=== PATIENT | female | born 1955 | race Caucasian/White ===

== ENCOUNTER 2024-07-07 01:47 | Outpatient (RCR) | payer MEDICARE, BC, SELFPAY ==
[2024-06-25] MEDS: Normal Saline Flush 10 ML SYR IVP (13:46)
[2024-06-25 13:55] LABS: Abs Immature Grans 0.01 10^3/uL (0.0-0.06); Absolute Basophil Count 0.01 10^3/uL (0.0-0.2); Absolute Lymphocyte Count 0.61 10^3/uL (1.2-3.4); Absolute Monocyte Count 0.41 10^3/uL (0.1-0.8); Basophils % 0.4 %; HCT 32.6 % (36.0-46.0); HGB 10.6 g/dL (11.2-15.7); Immature Grans % 0.4 %; Lymphocytes % 21.5 %; MCH 32.3 pg (27.0-33.0); MCHC 32.5 % (32.0-36.0); MCV 99 fL (80-95); Monocytes % 14.4 %; Neutrophils % 63.3 %; Platelet Count 188 10^3/uL (130-400); RBC 3.28 10^6/uL (3.93-5.22); RDW 13.2 % (11.7-14.6); RDW-SD 47.8 fL; WBC 2.84 10^3/uL (4.4-10.8)
[2024-06-25 14:13] LABS: ALT 19 U/L (14-59); AST 24 U/L (15-37); Albumin 3.1 g/dL (3.4-5.0); Alkaline Phosphatase 136 U/L (46-116); Anion Gap 7.8 mmol/L (3-11); BUN 14 mg/dL (7-18); Bilirubin, Total 0.29 mg/dL (0.2-1.0); CO2 29.2 mmol/L (21.0-32.0); CREATININE 0.9 mg/dL (0.55-1.02); Calcium 8.8 mg/dL (8.5-10.1); Chloride 105 mmol/L (98-107); Estimated GFR 69.64 (mL/min/1.73m2); Glucose 121 mg/dL (74-106); LDH 169 U/L (81-234); Potassium 4.2 mmol/L (3.5-5.1); Sodium 142 mmol/L (136-145); Total Protein 7.4 g/dL (6.4-8.2)
[2024-07-02] MEDS: Normal Saline Flush 10 ML SYR IVP (12:14)
[2024-07-02 12:41] LABS: Abs Immature Grans 0.03 10^3/uL (0.0-0.06); HCT 31.8 % (36.0-46.0); HGB 10.4 g/dL (11.2-15.7); MCH 32.1 pg (27.0-33.0); MCHC 32.7 % (32.0-36.0); MCV 98 fL (80-95); MPV 10.6 fL (8.0-11.0); RBC 3.24 10^6/uL (3.93-5.22); RDW 12.9 % (11.7-14.6); RDW-SD 46.5 fL
[2024-07-02 12:59] LABS: ALT 16 U/L (14-59); AST 16 U/L (15-37); Alkaline Phosphatase 102 U/L (46-116); Anion Gap 7.1 mmol/L (3-11); BUN 18 mg/dL (7-18); Bilirubin, Total 0.46 mg/dL (0.2-1.0); CO2 28.9 mmol/L (21.0-32.0); CREATININE 0.8 mg/dL (0.55-1.02); Calcium 8.5 mg/dL (8.5-10.1); Chloride 106 mmol/L (98-107); Estimated GFR 80.21 (mL/min/1.73m2); Glucose 123 mg/dL (74-106); LDH 155 U/L (81-234); Potassium 3.5 mmol/L (3.5-5.1); Sodium 142 mmol/L (136-145); Total Protein 6.6 g/dL (6.4-8.2)
[2024-07-02 13:12] LABS: Absolute Lymphocyte Count 0.36 10^3/uL (1.2-3.4); Absolute Monocyte Count 0.02 10^3/uL (0.1-0.8); Atypical Lymphocytes % 6 %; Metamyelocytes % 4; Myelocytes % 2
[2024-07-02 13:15] LABS: Diff Comment Manual Differential; RBC Morphology Normal
[2024-07-02 13:17] LABS: WBC 0.46 10^3/uL (4.4-10.8)
[2024-07-02 13:18] LABS: Absolute Neutrophil Count 0.06 10^3/uL (1.2-6.7); Platelet Count 22 10^3/uL (130-400)
[2024-07-04] MEDS: Normal Saline Flush 10 ML SYR IVP (08:22)
[2024-07-04 08:40] LABS: Absolute Lymphocyte Count 0.28 10^3/uL (1.2-3.4); Absolute Monocyte Count 0.02 10^3/uL (0.1-0.8); HCT 30.1 % (36.0-46.0); HGB 9.9 g/dL (11.2-15.7); Lymphocytes % 87.5 %; MCH 32.1 pg (27.0-33.0); MCHC 32.9 % (32.0-36.0); MCV 98 fL (80-95); MPV 12.9 fL (8.0-11.0); Monocytes % 6.3 %; Neutrophils % 6.2 %; RBC 3.08 10^6/uL (3.93-5.22); RDW 12.8 % (11.7-14.6); RDW-SD 45.5 fL
[2024-07-04 08:54] LABS: Diff Comment Agrees w/ Instrument; RBC Morphology Normal
[2024-07-04 08:55] LABS: Absolute Neutrophil Count 0.02 10^3/uL (1.2-6.7); Platelet Count 7 10^3/uL (130-400); WBC 0.32 10^3/uL (4.4-10.8)
[2024-07-04 13:20] VITALS: BP 137/86; PULSE 63; RESP 17; TEMP 36.1; O2SAT 100
[2024-07-07] MEDS: Normal Saline Flush 10 ML SYR IVP (08:16)
[2024-07-07 08:30] LABS: Absolute Basophil Count 0.03 10^3/uL (0.0-0.2); HCT 27.4 % (36.0-46.0); HGB 9.1 g/dL (11.2-15.7); MCH 32.3 pg (27.0-33.0); MCHC 33.2 % (32.0-36.0); MCV 97 fL (80-95); RBC 2.82 10^6/uL (3.93-5.22); RDW 12.4 % (11.7-14.6); RDW-SD 44.3 fL
[2024-07-07 09:13] LABS: Absolute Eosinophil Count 0.02 10^3/uL (0.0-0.7); Absolute Lymphocyte Count 0.29 10^3/uL (1.2-3.4); Absolute Monocyte Count 0.06 10^3/uL (0.1-0.8); Absolute Neutrophil Count 0.52 10^3/uL (1.2-6.7); Atypical Lymphocytes % 1 %; Bands % 3 %; Metamyelocytes % 2
[2024-07-07 09:14] LABS: Diff Comment Manual Differential; RBC Morphology Normal
[2024-07-07 09:32] LABS: Platelet Count 13 10^3/uL (130-400); WBC 0.93 10^3/uL (4.4-10.8)
[2024-07-07 13:21] VITALS: BP 139/84; PULSE 59; RESP 17; TEMP 35.5; O2SAT 100
[2024-07-07 13:35] VITALS: BP 132/82; PULSE 68; RESP 17; TEMP 36.2; O2SAT 100
== END 2024-07-10 23:59 | disposition home or self-care (01) ==
LOC: INF 01:47
PROVIDERS: Visit Provider Internal Medicine Hematology & Oncology
DX: C83.38 Diffuse large B-cell lymphoma, lymph nodes of multiple sites (principal); Z45.2 Encounter for adjustment and management of vascular access device
CPT/HCPCS: 36430; 36591; 80053; 86850; 86900; 86901; P9073; 83615; 85025; P9035

== ENCOUNTER 2024-08-06 08:59 | Outpatient (REF) | payer MEDICARE, BC, SELFPAY ==
[2024-08-06 09:06] LABS: Abs Immature Grans 0.03 10^3/uL (0.0-0.06); Absolute Basophil Count 0.03 10^3/uL (0.0-0.2); Absolute Eosinophil Count 0.01 10^3/uL (0.0-0.7); Absolute Monocyte Count 0.59 10^3/uL (0.1-0.8); Absolute Neutrophil Count 1.99 10^3/uL (1.2-6.7); Eosinophils % 0.3 %; HCT 23.7 % (36.0-46.0); HGB 7.7 g/dL (11.2-15.7); Lymphocytes % 13.1 %; MCH 33.3 pg (27.0-33.0); MCHC 32.5 % (32.0-36.0); MCV 103 fL (80-95); MPV 9.5 fL (8.0-11.0); Monocytes % 19.3 %; Neutrophils % 65.3 %; Platelet Count 189 10^3/uL (130-400); RBC 2.31 10^6/uL (3.93-5.22); RDW 18.2 % (11.7-14.6); RDW-SD 63.6 fL; WBC 3.05 10^3/uL (4.4-10.8)
[2024-08-06 09:22] LABS: Diff Comment Diff Reviewed; Hypochromasia 2+; Polychromasia Present
[2024-08-06 09:23] LABS: ALT 12 U/L (14-59); AST 12 U/L (15-37); Albumin 3.1 g/dL (3.4-5.0); Alkaline Phosphatase 77 U/L (46-116); Anion Gap 7.9 mmol/L (3-11); BUN 17 mg/dL (7-18); CO2 29.1 mmol/L (21.0-32.0); CREATININE 0.8 mg/dL (0.55-1.02); Calcium 8.3 mg/dL (8.5-10.1); Chloride 109 mmol/L (98-107); Estimated GFR 80.21 (mL/min/1.73m2); Glucose 112 mg/dL (74-106); LDH 131 U/L (81-234); Sodium 146 mmol/L (136-145); Total Protein 5.8 g/dL (6.4-8.2)
== END 2024-08-06 09:00 | disposition home or self-care (01) ==
LOC: LBN 08:59
PROVIDERS: Visit Provider Internal Medicine Hematology & Oncology
DX: C83.38 Diffuse large B-cell lymphoma, lymph nodes of multiple sites (principal)
CPT/HCPCS: 80053; 83615; 85025

== ENCOUNTER 2024-08-08 01:08 | Outpatient (RCR) | payer MEDICARE, BC, SELFPAY ==
[2024-07-11 00:38] VITALS: BP 132/82; PULSE 68; RESP 17; TEMP 36.2
[2024-07-16] MEDS: Normal Saline Flush 10 ML SYR IVP (11:00)
[2024-07-16 11:32] LABS: Abs Immature Grans 0.05 10^3/uL (0.0-0.06); Absolute Basophil Count 0.05 10^3/uL (0.0-0.2); Absolute Eosinophil Count 0.02 10^3/uL (0.0-0.7); Absolute Lymphocyte Count 0.47 10^3/uL (1.2-3.4); Absolute Neutrophil Count 2.97 10^3/uL (1.2-6.7); Basophils % 1.2 %; Eosinophils % 0.5 %; HCT 26.3 % (36.0-46.0); HGB 8.8 g/dL (11.2-15.7); Immature Grans % 1.2 %; Lymphocytes % 11.6 %; MCH 32.7 pg (27.0-33.0); MCHC 33.5 % (32.0-36.0); MCV 98 fL (80-95); MPV 9.2 fL (8.0-11.0); Monocytes % 12.3 %; Neutrophils % 73.2 %; Platelet Count 271 10^3/uL (130-400); RBC 2.69 10^6/uL (3.93-5.22); RDW 13.9 % (11.7-14.6); WBC 4.06 10^3/uL (4.4-10.8)
[2024-07-16 12:17] LABS: ALT 12 U/L (14-59); AST 14 U/L (15-37); Albumin 2.9 g/dL (3.4-5.0); Alkaline Phosphatase 101 U/L (46-116); Anion Gap 4.7 mmol/L (3-11); BUN 9 mg/dL (7-18); Bilirubin, Total 0.19 mg/dL (0.2-1.0); CO2 29.3 mmol/L (21.0-32.0); CREATININE 0.8 mg/dL (0.55-1.02); Calcium 8.4 mg/dL (8.5-10.1); Chloride 110 mmol/L (98-107); Estimated GFR 80.21 (mL/min/1.73m2); Glucose 102 mg/dL (74-106); LDH 147 U/L (81-234); Potassium 3.7 mmol/L (3.5-5.1); Sodium 144 mmol/L (136-145); Total Protein 6.5 g/dL (6.4-8.2)
[2024-08-06] MEDS: Normal Saline Flush 10 ML SYR IVP (14:33)
[2024-08-08 10:24] VITALS: BP 103/71; PULSE 70; RESP 16; TEMP 36; O2SAT 98
[2024-08-08] MEDS: Normal Saline Flush 10 ML SYR IVP ×2 (10:34→13:31)
[2024-08-08 10:39] VITALS: BP 112/74; PULSE 76; RESP 16; TEMP 35.9; O2SAT 100
[2024-08-08 10:58] VITALS: BP 111/74; PULSE 72; RESP 16; TEMP 35.9; O2SAT 100
[2024-08-08 11:09] VITALS: BP 112/75; PULSE 79; RESP 18; TEMP 35.8; O2SAT 100
[2024-08-08 12:06] VITALS: BP 110/49; PULSE 85; RESP 16; TEMP 36; O2SAT 99
== END 2024-08-09 23:59 | disposition home or self-care (01) ==
LOC: INF 01:08
PROVIDERS: Visit Provider Internal Medicine Hematology & Oncology
DX: C83.38 Diffuse large B-cell lymphoma, lymph nodes of multiple sites (principal)
CPT/HCPCS: 36430; 36591; 80053; 86850; 86900; 86901; 86920; 83615; 85025; P9016

== ENCOUNTER 2024-09-09 01:58 | Outpatient (RCR) | payer MEDICARE, BC, SELFPAY ==
[2024-08-10 00:14] VITALS: BP 132/82; PULSE 68; RESP 17; TEMP 36.2
[2024-08-14] MEDS: Normal Saline Flush 10 ML SYR IVP (14:48)
[2024-08-14 15:04] LABS: HCT 25.6 % (36.0-46.0); HGB 8.4 g/dL (11.2-15.7); MCH 32.8 pg (27.0-33.0); MCHC 32.8 % (32.0-36.0); MCV 100 fL (80-95); MPV 10.2 fL (8.0-11.0); RBC 2.56 10^6/uL (3.93-5.22); RDW 17.1 % (11.7-14.6); RDW-SD 60.4 fL
[2024-08-14 15:18] LABS: ALT 12 U/L (14-59); AST 9 U/L (15-37); Albumin 3.1 g/dL (3.4-5.0); Alkaline Phosphatase 76 U/L (46-116); Anion Gap 6.9 mmol/L (3-11); BUN 26 mg/dL (7-18); Bilirubin, Total 0.26 mg/dL (0.2-1.0); CO2 29.1 mmol/L (21.0-32.0); CREATININE 0.8 mg/dL (0.55-1.02); Calcium 7.9 mg/dL (8.5-10.1); Chloride 106 mmol/L (98-107); Estimated GFR 80.21 (mL/min/1.73m2); Glucose 94 mg/dL (74-106); LDH 104 U/L (81-234); Potassium 4.1 mmol/L (3.5-5.1); Sodium 142 mmol/L (136-145); Total Protein 6.1 g/dL (6.4-8.2)
[2024-08-14 15:26] LABS: Absolute Basophil Count 0.03 10^3/uL (0.0-0.2); Absolute Eosinophil Count 0.03 10^3/uL (0.0-0.7); Bands % 6 %
[2024-08-14 15:28] LABS: Macrocytosis 1+
[2024-08-14 15:31] LABS: Platelet Count 29 10^3/uL (130-400); WBC 0.65 10^3/uL (4.4-10.8)
[2024-08-14 15:32] LABS: Diff Comment Manual Differential
[2024-08-14 15:52] LABS: Anisocytosis 1+
[2024-08-18] MEDS: Normal Saline Flush 10 ML SYR IVP (11:17)
[2024-08-18 11:30] LABS: Abs Immature Grans 0.07 10^3/uL (0.0-0.06); Absolute Basophil Count 0.07 10^3/uL (0.0-0.2); Absolute Eosinophil Count 0.04 10^3/uL (0.0-0.7); Absolute Lymphocyte Count 0.53 10^3/uL (1.2-3.4); Absolute Monocyte Count 0.63 10^3/uL (0.1-0.8); Absolute Neutrophil Count 3.66 10^3/uL (1.2-6.7); Basophils % 1.4 %; Eosinophils % 0.8 %; HCT 25.8 % (36.0-46.0); HGB 8.4 g/dL (11.2-15.7); Immature Grans % 1.4 %; Lymphocytes % 10.6 %; MCH 32.9 pg (27.0-33.0); MCHC 32.6 % (32.0-36.0); MCV 101 fL (80-95); MPV 10.5 fL (8.0-11.0); Monocytes % 12.6 %; Neutrophils % 73.2 %; RBC 2.55 10^6/uL (3.93-5.22); RDW 17.7 % (11.7-14.6); RDW-SD 63.7 fL
[2024-08-18 12:01] LABS: Diff Comment PLT Morph Reviewed; Platelet Count 74 10^3/uL (130-400); RBC Morphology Normal
[2024-08-27] MEDS: Normal Saline Flush 10 ML SYR IVP (08:08)
[2024-08-27 08:17] LABS: Abs Immature Grans 0.02 10^3/uL (0.0-0.06); Absolute Basophil Count 0.06 10^3/uL (0.0-0.2); Absolute Eosinophil Count 0.02 10^3/uL (0.0-0.7); Absolute Lymphocyte Count 0.37 10^3/uL (1.2-3.4); Absolute Monocyte Count 0.67 10^3/uL (0.1-0.8); Absolute Neutrophil Count 1.97 10^3/uL (1.2-6.7); Basophils % 1.9 %; Eosinophils % 0.6 %; HCT 26.6 % (36.0-46.0); HGB 8.6 g/dL (11.2-15.7); Immature Grans % 0.6 %; Lymphocytes % 11.9 %; MCH 33.5 pg (27.0-33.0); MCHC 32.3 % (32.0-36.0); MCV 104 fL (80-95); MPV 8.8 fL (8.0-11.0); Monocytes % 21.5 %; Neutrophils % 63.5 %; Platelet Count 207 10^3/uL (130-400); RBC 2.57 10^6/uL (3.93-5.22); RDW 21.1 % (11.7-14.6); RDW-SD 77.4 fL; WBC 3.11 10^3/uL (4.4-10.8)
[2024-08-27 08:36] LABS: ALT 11 U/L (14-59); AST 13 U/L (15-37); Albumin 3.1 g/dL (3.4-5.0); Alkaline Phosphatase 67 U/L (46-116); Anion Gap 6.9 mmol/L (3-11); Anisocytosis 1+; BUN 16 mg/dL (7-18); Bilirubin, Total 0.29 mg/dL (0.2-1.0); CO2 30.1 mmol/L (21.0-32.0); CREATININE 0.8 mg/dL (0.55-1.02); Calcium 8.5 mg/dL (8.5-10.1); Chloride 107 mmol/L (98-107); Estimated GFR 80.21 (mL/min/1.73m2); Glucose 89 mg/dL (74-106); LDH 127 U/L (81-234); Potassium 3.9 mmol/L (3.5-5.1); Sodium 144 mmol/L (136-145)
[2024-09-05] VITALS (10 sets, daily range): BP systolic 102–123; BP diastolic 56–81; PULSE 63–86; RESP 18; TEMP 35.2–36.6; O2SAT 100
[2024-09-05] MEDS: Normal Saline Flush 10 ML SYR IVP ×2 (08:12→10:08)
[2024-09-05 08:16] LABS: Abs Immature Grans 0.06 10^3/uL (0.0-0.06); Absolute Eosinophil Count 0.03 10^3/uL (0.0-0.7); MCHC 33.3 % (32.0-36.0); MCV 105 fL (80-95); MPV 12.8 fL (8.0-11.0); RBC 1.97 10^6/uL (3.93-5.22); RDW 19.1 % (11.7-14.6); RDW-SD 70.5 fL
[2024-09-05 08:56] LABS: Absolute Lymphocyte Count 0.32 10^3/uL (1.2-3.4); Absolute Monocyte Count 0.11 10^3/uL (0.1-0.8); Bands % 2 %
[2024-09-05 08:57] LABS: Absolute Basophil Count 0.03 10^3/uL (0.0-0.2); Diff Comment Manual Differential; Macrocytosis 2+; Metamyelocytes % 1; Myelocytes % 3
[2024-09-05 09:03] LABS: HCT 20.7 % (36.0-46.0); HGB 6.9 g/dL (11.2-15.7); WBC 0.99 10^3/uL (4.4-10.8)
[2024-09-05 09:04] LABS: Absolute Neutrophil Count 0.47 10^3/uL (1.2-6.7); Platelet Count 12 10^3/uL (130-400)
[2024-09-09] MEDS: Normal Saline Flush 10 ML SYR IVP (08:12)
[2024-09-09 08:27] LABS: Abs Immature Grans 0.04 10^3/uL (0.0-0.06); Absolute Basophil Count 0.05 10^3/uL (0.0-0.2); Absolute Eosinophil Count 0.04 10^3/uL (0.0-0.7); Absolute Lymphocyte Count 0.36 10^3/uL (1.2-3.4); Absolute Monocyte Count 0.36 10^3/uL (0.1-0.8); Absolute Neutrophil Count 2.82 10^3/uL (1.2-6.7); Basophils % 1.4 %; Eosinophils % 1.1 %; HCT 29.2 % (36.0-46.0); HGB 9.6 g/dL (11.2-15.7); Immature Grans % 1.1 %; Lymphocytes % 9.8 %; MCH 32.8 pg (27.0-33.0); MCHC 32.9 % (32.0-36.0); MCV 100 fL (80-95); MPV 10.4 fL (8.0-11.0); Monocytes % 9.8 %; Neutrophils % 76.8 %; RBC 2.93 10^6/uL (3.93-5.22); RDW 18.9 % (11.7-14.6); RDW-SD 66.6 fL; WBC 3.67 10^3/uL (4.4-10.8)
[2024-09-09 08:38] LABS: Platelet Count 51 10^3/uL (130-400)
== END 2024-09-09 23:59 | disposition home or self-care (01) ==
LOC: INF 01:58
PROVIDERS: Visit Provider Internal Medicine Hematology & Oncology
DX: C83.38 Diffuse large B-cell lymphoma, lymph nodes of multiple sites (principal)
CPT/HCPCS: 36430; 36591; 80053; 86850; 86900; 86901; 86920; 96523; 83615; 85025; P9016; P9035

== ENCOUNTER 2024-10-06 02:13 | Outpatient (RCR) | payer MEDICARE, BC, SELFPAY ==
[2024-09-10 00:09] VITALS: BP 132/82; PULSE 68; RESP 17; TEMP 36.2
[2024-09-17] MEDS: Normal Saline Flush 10 ML SYR IVP (08:08)
[2024-09-17 08:24] LABS: Abs Immature Grans 0.02 10^3/uL (0.0-0.06); Absolute Basophil Count 0.09 10^3/uL (0.0-0.2); Absolute Eosinophil Count 0.02 10^3/uL (0.0-0.7); Absolute Lymphocyte Count 0.48 10^3/uL (1.2-3.4); Absolute Monocyte Count 0.51 10^3/uL (0.1-0.8); Absolute Neutrophil Count 2.31 10^3/uL (1.2-6.7); Basophils % 2.6 %; Eosinophils % 0.6 %; HCT 29.8 % (36.0-46.0); HGB 9.8 g/dL (11.2-15.7); Immature Grans % 0.6 %; MCH 33.7 pg (27.0-33.0); MCHC 32.9 % (32.0-36.0); MCV 102 fL (80-95); MPV 9.4 fL (8.0-11.0); Monocytes % 14.9 %; Neutrophils % 67.3 %; Platelet Count 157 10^3/uL (130-400); RBC 2.91 10^6/uL (3.93-5.22); RDW 19.9 % (11.7-14.6); RDW-SD 72.4 fL; WBC 3.43 10^3/uL (4.4-10.8)
[2024-09-17 08:51] LABS: ALT 12 U/L (14-59); AST 14 U/L (15-37); Albumin 3.1 g/dL (3.4-5.0); Alkaline Phosphatase 72 U/L (46-116); Anion Gap 5.7 mmol/L (3-11); BUN 12 mg/dL (7-18); Bilirubin, Total 0.38 mg/dL (0.2-1.0); CO2 31.3 mmol/L (21.0-32.0); CREATININE 0.8 mg/dL (0.55-1.02); Calcium 8.7 mg/dL (8.5-10.1); Chloride 109 mmol/L (98-107); Estimated GFR 80.21 (mL/min/1.73m2); Glucose 90 mg/dL (74-106); LDH 133 U/L (81-234); Potassium 3.9 mmol/L (3.5-5.1); Sodium 146 mmol/L (136-145); Total Protein 5.9 g/dL (6.4-8.2)
[2024-09-25 10:11] LABS: Absolute Eosinophil Count 0.04 10^3/uL (0.0-0.7); HCT 26.8 % (36.0-46.0); HGB 8.7 g/dL (11.2-15.7); MCH 33.9 pg (27.0-33.0); MCHC 32.5 % (32.0-36.0); MCV 104 fL (80-95); RBC 2.57 10^6/uL (3.93-5.22); RDW 18.6 % (11.7-14.6); RDW-SD 70.1 fL
[2024-09-25 10:26] LABS: Absolute Basophil Count 0.03 10^3/uL (0.0-0.2); Absolute Lymphocyte Count 0.22 10^3/uL (1.2-3.4); Absolute Monocyte Count 0.19 10^3/uL (0.1-0.8)
[2024-09-25 10:27] LABS: Diff Comment Manual Differential; RBC Morphology Normal
[2024-09-25 10:30] LABS: Absolute Neutrophil Count 0.17 10^3/uL (1.2-6.7); Platelet Count 8 10^3/uL (130-400); WBC 0.64 10^3/uL (4.4-10.8)
[2024-09-25] MEDS: Normal Saline Flush 10 ML SYR IVP (10:55)
[2024-09-26 12:59] VITALS: BP 126/80; PULSE 98; RESP 18; TEMP 36.6; O2SAT 100
[2024-09-26 13:20] VITALS: BP 121/75; PULSE 85; RESP 18; TEMP 37.1; O2SAT 99
[2024-09-26] MEDS: Normal Saline Flush 10 ML SYR IVP (13:38)
[2024-09-29] MEDS: Normal Saline Flush 10 ML SYR IVP ×2 (08:15→09:36)
[2024-09-29 08:21] LABS: Abs Immature Grans 0.03 10^3/uL (0.0-0.06); Absolute Basophil Count 0.03 10^3/uL (0.0-0.2); HCT 24.1 % (36.0-46.0); HGB 7.9 g/dL (11.2-15.7); MCH 34.3 pg (27.0-33.0); MCHC 32.8 % (32.0-36.0); MCV 105 fL (80-95); MPV 10.4 fL (8.0-11.0); RDW 19.3 % (11.7-14.6); RDW-SD 72.6 fL; WBC 2.65 10^3/uL (4.4-10.8)
[2024-09-29 08:54] LABS: Absolute Eosinophil Count 0.08 10^3/uL (0.0-0.7); Absolute Lymphocyte Count 0.27 10^3/uL (1.2-3.4); Absolute Monocyte Count 0.21 10^3/uL (0.1-0.8); Absolute Neutrophil Count 1.96 10^3/uL (1.2-6.7); Bands % 3 %; Diff Comment Manual Differential; Hypochromasia 2+; Metamyelocytes % 2; Myelocytes % 1; Platelet Count 42 10^3/uL (130-400); Promyelocytes % 1
[2024-09-29 08:55] LABS: Poikilocytes 2+
[2024-09-29 09:33] VITALS: BP 107/72; PULSE 85; RESP 18; TEMP 36.6; O2SAT 100
[2024-09-29 09:48] VITALS: BP 120/65; PULSE 85; RESP 18; TEMP 36.5; O2SAT 99
[2024-09-29 10:07] VITALS: BP 112/76; PULSE 72; RESP 18; TEMP 36.3; O2SAT 100
[2024-09-29 10:18] VITALS: BP 130/84; PULSE 77; RESP 18; TEMP 36.5; O2SAT 100
[2024-09-29 11:18] VITALS: BP 115/77; PULSE 81; RESP 18; TEMP 36.5; O2SAT 100
[2024-10-06] MEDS: Normal Saline Flush 10 ML SYR IVP (08:01)
[2024-10-06 08:16] LABS: Abs Immature Grans 0.01 10^3/uL (0.0-0.06); Absolute Basophil Count 0.06 10^3/uL (0.0-0.2); Absolute Eosinophil Count 0.05 10^3/uL (0.0-0.7); Absolute Lymphocyte Count 0.53 10^3/uL (1.2-3.4); Absolute Monocyte Count 0.53 10^3/uL (0.1-0.8); Absolute Neutrophil Count 1.54 10^3/uL (1.2-6.7); Basophils % 2.2 %; Eosinophils % 1.8 %; HCT 30.3 % (36.0-46.0); HGB 9.7 g/dL (11.2-15.7); Immature Grans % 0.4 %; Lymphocytes % 19.5 %; MCV 103 fL (80-95); MPV 9.7 fL (8.0-11.0); Monocytes % 19.5 %; Neutrophils % 56.6 %; Platelet Count 103 10^3/uL (130-400); RBC 2.94 10^6/uL (3.93-5.22); RDW 20.9 % (11.7-14.6); RDW-SD 77.4 fL; WBC 2.72 10^3/uL (4.4-10.8)
[2024-10-06 08:24] LABS: Anisocytosis 2+; Diff Comment RBC Morph Reviewed
[2024-10-06 08:41] LABS: ALT 14 U/L (14-59); AST 11 U/L (15-37); Albumin 3.1 g/dL (3.4-5.0); Alkaline Phosphatase 69 U/L (46-116); Anion Gap 5.5 mmol/L (3-11); BUN 11 mg/dL (7-18); Bilirubin, Total 0.26 mg/dL (0.2-1.0); CO2 31.5 mmol/L (21.0-32.0); CREATININE 0.8 mg/dL (0.55-1.02); Calcium 8.7 mg/dL (8.5-10.1); Chloride 108 mmol/L (98-107); Estimated GFR 80.21 (mL/min/1.73m2); Glucose 76 mg/dL (74-106); LDH 131 U/L (81-234); Potassium 3.6 mmol/L (3.5-5.1); Sodium 145 mmol/L (136-145); Total Protein 5.7 g/dL (6.4-8.2)
== END 2024-10-10 23:59 | disposition home or self-care (01) ==
LOC: INF 02:13
PROVIDERS: Visit Provider Internal Medicine Hematology & Oncology
DX: C83.38 Diffuse large B-cell lymphoma, lymph nodes of multiple sites (principal)
CPT/HCPCS: 36430; 36591; 80053; 86850; 86900; 86901; 86920; 96523; 83615; 85025; P9016; P9035

== ENCOUNTER 2024-11-05 07:19 | Outpatient (RCR) | payer MEDICARE, BC, SELFPAY ==
[2024-11-05 07:37] LABS: Abs Immature Grans 0.01 10^3/uL (0.0-0.06); Absolute Basophil Count 0.05 10^3/uL (0.0-0.2); Absolute Eosinophil Count 0.23 10^3/uL (0.0-0.7); Absolute Lymphocyte Count 0.61 10^3/uL (1.2-3.4); Absolute Monocyte Count 0.38 10^3/uL (0.1-0.8); Absolute Neutrophil Count 2.01 10^3/uL (1.2-6.7); Basophils % 1.5 %; HCT 31.6 % (36.0-46.0); HGB 10.4 g/dL (11.2-15.7); Immature Grans % 0.3 %; Lymphocytes % 18.5 %; MCH 34.4 pg (27.0-33.0); MCHC 32.9 % (32.0-36.0); MCV 105 fL (80-95); MPV 9.1 fL (8.0-11.0); Monocytes % 11.6 %; Neutrophils % 61.1 %; Platelet Count 137 10^3/uL (130-400); RBC 3.02 10^6/uL (3.93-5.22); RDW 17.9 % (11.7-14.6); RDW-SD 68.1 fL; WBC 3.29 10^3/uL (4.4-10.8)
[2024-11-05 07:52] LABS: ALT 25 U/L (14-59); AST 20 U/L (15-37); Albumin 3.2 g/dL (3.4-5.0); Alkaline Phosphatase 94 U/L (46-116); Anion Gap 3.6 mmol/L (3-11); BUN 10 mg/dL (7-18); Bilirubin, Total 0.36 mg/dL (0.2-1.0); CO2 33.4 mmol/L (21.0-32.0); CREATININE 0.6 mg/dL (0.55-1.02); Calcium 8.8 mg/dL (8.5-10.1); Chloride 109 mmol/L (98-107); Estimated GFR 97.71 (mL/min/1.73m2); Glucose 92 mg/dL (74-106); LDH 148 U/L (81-234); Sodium 146 mmol/L (136-145); Total Protein 5.9 g/dL (6.4-8.2)
[2024-11-05] MEDS: Normal Saline Flush 10 ML SYR IVP (10:09)
== END 2024-11-07 23:59 | disposition home or self-care (01) ==
LOC: INF 07:19
PROVIDERS: Visit Provider Internal Medicine Hematology & Oncology
DX: C83.38 Diffuse large B-cell lymphoma, lymph nodes of multiple sites (principal)
CPT/HCPCS: 36591; 80053; 86850; 86900; 86901; 83615; 85025

== ENCOUNTER 2024-12-03 02:10 | Outpatient (RCR) | payer MEDICARE, BC, SELFPAY ==
[2024-11-12] MEDS: Normal Saline Flush 10 ML SYR IVP (12:20)
[2024-11-12 12:37] LABS: Abs Immature Grans 0.01 10^3/uL (0.0-0.06); Absolute Basophil Count 0.03 10^3/uL (0.0-0.2); Absolute Eosinophil Count 0.15 10^3/uL (0.0-0.7); Absolute Lymphocyte Count 0.65 10^3/uL (1.2-3.4); Absolute Neutrophil Count 3.16 10^3/uL (1.2-6.7); Basophils % 0.7 %; Eosinophils % 3.4 %; HCT 31.6 % (36.0-46.0); HGB 10.2 g/dL (11.2-15.7); Immature Grans % 0.2 %; Lymphocytes % 14.8 %; MCHC 32.3 % (32.0-36.0); MCV 105 fL (80-95); MPV 9.4 fL (8.0-11.0); Monocytes % 9.1 %; Neutrophils % 71.8 %; Platelet Count 145 10^3/uL (130-400); RDW 16.4 % (11.7-14.6); RDW-SD 63.7 fL
[2024-11-12 13:12] LABS: ALT 25 U/L (14-59); AST 23 U/L (15-37); Albumin 3.2 g/dL (3.4-5.0); Alkaline Phosphatase 124 U/L (46-116); Anion Gap 6.6 mmol/L (3-11); BUN 12 mg/dL (7-18); Bilirubin, Total 0.38 mg/dL (0.2-1.0); CO2 31.4 mmol/L (21.0-32.0); CREATININE 0.8 mg/dL (0.55-1.02); Calcium 8.7 mg/dL (8.5-10.1); Chloride 108 mmol/L (98-107); Estimated GFR 80.21 (mL/min/1.73m2); Glucose 92 mg/dL (74-106); LDH 173 U/L (81-234); Sodium 146 mmol/L (136-145); Total Protein 6.3 g/dL (6.4-8.2)
[2024-11-19] MEDS: Normal Saline Flush 10 ML SYR IVP (07:10)
[2024-11-19 07:28] LABS: Abs Immature Grans 0.03 10^3/uL (0.0-0.06); Absolute Basophil Count 0.04 10^3/uL (0.0-0.2); Absolute Eosinophil Count 0.22 10^3/uL (0.0-0.7); Absolute Lymphocyte Count 0.92 10^3/uL (1.2-3.4); Absolute Monocyte Count 0.44 10^3/uL (0.1-0.8); Absolute Neutrophil Count 2.43 10^3/uL (1.2-6.7); Eosinophils % 5.4 %; HCT 30.3 % (36.0-46.0); Immature Grans % 0.7 %; Lymphocytes % 22.5 %; MCH 34.6 pg (27.0-33.0); MCV 105 fL (80-95); MPV 9.4 fL (8.0-11.0); Monocytes % 10.8 %; Neutrophils % 59.6 %; Platelet Count 168 10^3/uL (130-400); RBC 2.89 10^6/uL (3.93-5.22); RDW 15.9 % (11.7-14.6); RDW-SD 62.4 fL; WBC 4.08 10^3/uL (4.4-10.8)
[2024-11-26] MEDS: Normal Saline Flush 10 ML SYR IVP (10:09)
[2024-11-26 10:13] LABS: Abs Immature Grans 0.16 10^3/uL (0.0-0.06); Absolute Basophil Count 0.03 10^3/uL (0.0-0.2); Absolute Eosinophil Count 0.17 10^3/uL (0.0-0.7); Basophils % 0.7 %; Eosinophils % 3.9 %; HCT 29.4 % (36.0-46.0); HGB 9.5 g/dL (11.2-15.7); Immature Grans % 3.7 %; Lymphocytes % 27.5 %; MCH 34.2 pg (27.0-33.0); MCHC 32.3 % (32.0-36.0); MCV 106 fL (80-95); MPV 9.5 fL (8.0-11.0); Monocytes % 6.9 %; Neutrophils % 57.3 %; Platelet Count 107 10^3/uL (130-400); RBC 2.78 10^6/uL (3.93-5.22); RDW 14.6 % (11.7-14.6); WBC 4.36 10^3/uL (4.4-10.8)
[2024-11-26 10:28] LABS: LDH 176 U/L (81-234)
[2024-11-26 10:41] LABS: ALT 34 U/L (14-59); AST 21 U/L (15-37); Albumin 2.4 g/dL (3.4-5.0); Alkaline Phosphatase 129 U/L (46-116); Anion Gap 7.9 mmol/L (3-11); BUN 9 mg/dL (7-18); Bilirubin, Total 0.3 mg/dL (0.2-1.0); CO2 30.1 mmol/L (21.0-32.0); CREATININE 0.8 mg/dL (0.55-1.02); Calcium 8.3 mg/dL (8.5-10.1); Chloride 105 mmol/L (98-107); Estimated GFR 80.21 (mL/min/1.73m2); Glucose 89 mg/dL (74-106); Potassium 3.9 mmol/L (3.5-5.1); Sodium 143 mmol/L (136-145); Total Protein 5.8 g/dL (6.4-8.2)
[2024-12-03 09:43] LABS: HCT 28.3 % (36.0-46.0); HGB 9.1 g/dL (11.2-15.7); MCH 34.3 pg (27.0-33.0); MCHC 32.2 % (32.0-36.0); MCV 107 fL (80-95); MPV 10.5 fL (8.0-11.0); Platelet Count 122 10^3/uL (130-400); RBC 2.65 10^6/uL (3.93-5.22); RDW 14.3 % (11.7-14.6); WBC 2.73 10^3/uL (4.4-10.8)
[2024-12-03] MEDS: Normal Saline Flush 10 ML SYR IVP (09:44)
[2024-12-03 10:01] LABS: ALT 20 U/L (14-59); AST 11 U/L (15-37); Albumin 2.5 g/dL (3.4-5.0); Alkaline Phosphatase 119 U/L (46-116); Anion Gap 8.1 mmol/L (3-11); BUN 8 mg/dL (7-18); Bilirubin, Total 0.5 mg/dL (0.2-1.0); CO2 29.9 mmol/L (21.0-32.0); CREATININE 0.7 mg/dL (0.55-1.02); Calcium 8.3 mg/dL (8.5-10.1); Chloride 108 mmol/L (98-107); Estimated GFR 94.15 (mL/min/1.73m2); Glucose 91 mg/dL (74-106); LDH 161 U/L (81-234); Potassium 3.7 mmol/L (3.5-5.1); Sodium 146 mmol/L (136-145); Total Protein 5.6 g/dL (6.4-8.2)
[2024-12-03 10:06] LABS: Absolute Eosinophil Count 0.11 10^3/uL (0.0-0.7); Absolute Lymphocyte Count 1.09 10^3/uL (1.2-3.4); Absolute Monocyte Count 0.19 10^3/uL (0.1-0.8); Absolute Neutrophil Count 1.26 10^3/uL (1.2-6.7); Bands % 1 %
[2024-12-03 10:07] LABS: Diff Comment Manual Differential; Macrocytosis 2+; Metamyelocytes % 3
== END 2024-12-08 23:59 | disposition home or self-care (01) ==
LOC: INF 02:10
PROVIDERS: Visit Provider Internal Medicine Hematology & Oncology
DX: C83.38 Diffuse large B-cell lymphoma, lymph nodes of multiple sites (principal)
CPT/HCPCS: 36591; 80053; 86850; 86900; 86901; 83615; 85025

== ENCOUNTER 2024-12-24 02:01 | Outpatient (RCR) | payer MEDICARE, BC, SELFPAY ==
[2024-12-10] MEDS: Normal Saline Flush 10 ML SYR IVP (08:18)
[2024-12-10 08:43] LABS: Abs Immature Grans 0.04 10^3/uL (0.0-0.06); HCT 29.7 % (36.0-46.0); HGB 9.4 g/dL (11.2-15.7); MCH 34.1 pg (27.0-33.0); MCHC 31.6 % (32.0-36.0); MCV 108 fL (80-95); MPV 9.7 fL (8.0-11.0); Platelet Count 179 10^3/uL (130-400); RBC 2.76 10^6/uL (3.93-5.22); RDW 13.8 % (11.7-14.6); RDW-SD 53.2 fL
[2024-12-10 09:01] LABS: ALT 15 U/L (14-59); AST 13 U/L (15-37); Albumin 2.6 g/dL (3.4-5.0); Alkaline Phosphatase 110 U/L (46-116); Anion Gap 7.5 mmol/L (3-11); BUN 8 mg/dL (7-18); Bilirubin, Total 0.2 mg/dL (0.2-1.0); CO2 29.5 mmol/L (21.0-32.0); CREATININE 0.7 mg/dL (0.55-1.02); Calcium 8.5 mg/dL (8.5-10.1); Chloride 110 mmol/L (98-107); Estimated GFR 94.15 (mL/min/1.73m2); Glucose 91 mg/dL (74-106); LDH 190 U/L (81-234); Potassium 4.1 mmol/L (3.5-5.1); Sodium 147 mmol/L (136-145); Total Protein 5.7 g/dL (6.4-8.2)
[2024-12-10 09:02] LABS: Absolute Lymphocyte Count 1.35 10^3/uL (1.2-3.4); Absolute Monocyte Count 0.26 10^3/uL (0.1-0.8); Bands % 1 %
[2024-12-10 09:03] LABS: Absolute Basophil Count 0.21 10^3/uL (0.0-0.2); Absolute Eosinophil Count 0.08 10^3/uL (0.0-0.7); Diff Comment Diff Reviewed; RBC Morphology Normal
[2024-12-17 11:59] LABS: HGB 10.1 g/dL (11.2-15.7); MCH 35.1 pg (27.0-33.0); MCHC 32.6 % (32.0-36.0); MCV 108 fL (80-95); MPV 8.9 fL (8.0-11.0); Platelet Count 169 10^3/uL (130-400); RBC 2.88 10^6/uL (3.93-5.22); RDW 14.6 % (11.7-14.6); RDW-SD 57.2 fL; WBC 3.84 10^3/uL (4.4-10.8)
[2024-12-17 12:15] LABS: Absolute Basophil Count 0.15 10^3/uL (0.0-0.2); Absolute Eosinophil Count 0.08 10^3/uL (0.0-0.7); Absolute Monocyte Count 0.35 10^3/uL (0.1-0.8); Absolute Neutrophil Count 1.27 10^3/uL (1.2-6.7); Atypical Lymphocytes % 4 %; Bands % 1 %; Diff Comment Manual Differential
[2024-12-17 12:16] LABS: ALT 13 U/L (14-59); AST 16 U/L (15-37); Albumin 2.9 g/dL (3.4-5.0); Alkaline Phosphatase 112 U/L (46-116); Anion Gap 6.6 mmol/L (3-11); BUN 10 mg/dL (7-18); Bilirubin, Total 0.3 mg/dL (0.2-1.0); CO2 29.4 mmol/L (21.0-32.0); CREATININE 0.7 mg/dL (0.55-1.02); Calcium 8.6 mg/dL (8.5-10.1); Chloride 108 mmol/L (98-107); Estimated GFR 94.15 (mL/min/1.73m2); Glucose 91 mg/dL (74-106); LDH 241 U/L (81-234); Macrocytosis 2+; Potassium 4.3 mmol/L (3.5-5.1); Sodium 144 mmol/L (136-145); Total Protein 5.9 g/dL (6.4-8.2)
[2024-12-17] MEDS: Normal Saline Flush 10 ML SYR IVP (12:59)
[2024-12-24] MEDS: Normal Saline Flush 10 ML SYR IVP (08:52)
[2024-12-24 08:54] LABS: Abs Immature Grans 0.32 10^3/uL (0.0-0.06); Absolute Basophil Count 0.06 10^3/uL (0.0-0.2); Absolute Eosinophil Count 0.28 10^3/uL (0.0-0.7); Absolute Lymphocyte Count 1.08 10^3/uL (1.2-3.4); Absolute Monocyte Count 0.32 10^3/uL (0.1-0.8); Absolute Neutrophil Count 1.59 10^3/uL (1.2-6.7); Basophils % 1.6 %; Eosinophils % 7.7 %; HCT 29.5 % (36.0-46.0); HGB 9.6 g/dL (11.2-15.7); Immature Grans % 8.8 %; Lymphocytes % 29.6 %; MCHC 32.5 % (32.0-36.0); MCV 108 fL (80-95); MPV 9.1 fL (8.0-11.0); Monocytes % 8.8 %; Neutrophils % 43.5 %; Platelet Count 110 10^3/uL (130-400); RBC 2.74 10^6/uL (3.93-5.22); RDW 13.9 % (11.7-14.6); RDW-SD 54.8 fL; WBC 3.65 10^3/uL (4.4-10.8)
[2024-12-24 09:09] LABS: Diff Comment Diff Reviewed
[2024-12-24 09:10] LABS: Macrocytosis 1+; Polychromasia Present
[2024-12-24 09:11] LABS: ALT 20 U/L (14-59); AST 17 U/L (15-37); Albumin 2.6 g/dL (3.4-5.0); Alkaline Phosphatase 138 U/L (46-116); Anion Gap 3.7 mmol/L (3-11); BUN 10 mg/dL (7-18); Bilirubin, Total 0.5 mg/dL (0.2-1.0); CO2 31.3 mmol/L (21.0-32.0); CREATININE 0.8 mg/dL (0.55-1.02); Calcium 8.5 mg/dL (8.5-10.1); Chloride 107 mmol/L (98-107); Estimated GFR 80.21 (mL/min/1.73m2); Glucose 95 mg/dL (74-106); LDH 217 U/L (81-234); Sodium 142 mmol/L (136-145); Total Protein 5.8 g/dL (6.4-8.2)
== END 2025-01-07 23:59 | disposition home or self-care (01) ==
LOC: INF 02:01
PROVIDERS: Visit Provider Internal Medicine Hematology & Oncology
DX: C83.38 Diffuse large B-cell lymphoma, lymph nodes of multiple sites (principal)
CPT/HCPCS: 36591; 80053; 86850; 86900; 86901; 83615; 85025

== ENCOUNTER 2025-02-04 01:02 | Outpatient (RCR) | payer MEDICARE, BC, SELFPAY ==
[2025-01-14 09:22] LABS: Abs Immature Grans 0.28 10^3/uL (0.0-0.06); HCT 29.6 % (36.0-46.0); HGB 9.5 g/dL (11.2-15.7); MCH 34.3 pg (27.0-33.0); MCHC 32.1 % (32.0-36.0); MCV 107 fL (80-95); MPV 9.8 fL (8.0-11.0); Platelet Count 121 10^3/uL (130-400); RBC 2.77 10^6/uL (3.93-5.22); RDW 16.2 % (11.7-14.6); RDW-SD 62.6 fL; WBC 3.84 10^3/uL (4.4-10.8)
[2025-01-14] MEDS: Normal Saline Flush 10 ML SYR IVP (09:30)
[2025-01-14 09:44] LABS: ALT 15 U/L (14-59); AST 16 U/L (15-37); Albumin 2.6 g/dL (3.4-5.0); Alkaline Phosphatase 100 U/L (46-116); Anion Gap 5.7 mmol/L (3-11); BUN 9 mg/dL (7-18); Bilirubin, Total 0.4 mg/dL (0.2-1.0); CO2 30.3 mmol/L (21.0-32.0); CREATININE 0.9 mg/dL (0.55-1.02); Calcium 8.3 mg/dL (8.5-10.1); Chloride 109 mmol/L (98-107); Estimated GFR 69.64 (mL/min/1.73m2); Glucose 81 mg/dL (74-106); LDH 230 U/L (81-234); Potassium 4.1 mmol/L (3.5-5.1); Sodium 145 mmol/L (136-145); Total Protein 5.3 g/dL (6.4-8.2)
[2025-01-14 10:05] LABS: Absolute Neutrophil Count 0.81 10^3/uL (1.2-6.7); Bands % 0 %
[2025-01-14 10:06] LABS: Absolute Basophil Count 0.04 10^3/uL (0.0-0.2); Absolute Eosinophil Count 0.12 10^3/uL (0.0-0.7); Absolute Lymphocyte Count 2.46 10^3/uL (1.2-3.4); Absolute Monocyte Count 0.23 10^3/uL (0.1-0.8); Atypical Lymphocytes % 1 %; Diff Comment Manual Differential; Macrocytosis 1+; Metamyelocytes % 3; Myelocytes % 1; Promyelocytes % 1
[2025-02-04] MEDS: Normal Saline Flush 10 ML SYR IVP (11:14)
[2025-02-04 11:42] LABS: HCT 26.2 % (36.0-46.0); HGB 8.4 g/dL (11.2-15.7); MCH 33.1 pg (27.0-33.0); MCHC 32.1 % (32.0-36.0); MCV 103 fL (80-95); MPV 11.1 fL (8.0-11.0); Nucleated RBC 0.3 % (0.0-0.3); RBC 2.54 10^6/uL (3.93-5.22); RDW 15.9 % (11.7-14.6); RDW-SD 59.7 fL
[2025-02-04 11:54] LABS: ALT 12 U/L (14-59); AST 24 U/L (15-37); Albumin 2.8 g/dL (3.4-5.0); Alkaline Phosphatase 123 U/L (46-116); Anion Gap 6.9 mmol/L (3-11); BUN 11 mg/dL (7-18); Bilirubin, Total 0.4 mg/dL (0.2-1.0); CO2 31.1 mmol/L (21.0-32.0); CREATININE 0.9 mg/dL (0.55-1.02); Calcium 8.5 mg/dL (8.5-10.1); Chloride 104 mmol/L (98-107); Estimated GFR 69.64 (mL/min/1.73m2); Glucose 87 mg/dL (74-106); LDH 281 U/L (81-234); Potassium 3.5 mmol/L (3.5-5.1); Sodium 142 mmol/L (136-145); Total Protein 5.8 g/dL (6.4-8.2)
[2025-02-04 11:58] LABS: Absolute Eosinophil Count 0.12 10^3/uL (0.0-0.7); Absolute Lymphocyte Count 1.53 10^3/uL (1.2-3.4); Absolute Monocyte Count 0.31 10^3/uL (0.1-0.8); Absolute Neutrophil Count 4.15 10^3/uL (1.2-6.7); Bands % 1 %; Diff Comment Manual Differential; RBC Morphology Normal
[2025-02-04 12:01] LABS: Platelet Count 26 10^3/uL (130-400)
== END 2025-02-07 23:59 | disposition home or self-care (01) ==
LOC: INF 01:02
PROVIDERS: Visit Provider Internal Medicine Hematology & Oncology
DX: C83.38 Diffuse large B-cell lymphoma, lymph nodes of multiple sites (principal); Z45.2 Encounter for adjustment and management of vascular access device
CPT/HCPCS: 36591; 80053; 83615; 85025

== ENCOUNTER 2025-03-04 00:42 | Outpatient (RCR) | payer MEDICARE, BC, SELFPAY ==
[2025-02-11] MEDS: Normal Saline Flush 10 ML SYR IVP (11:43)
[2025-02-11 11:51] LABS: MCHC 32.1 % (32.0-36.0); MCV 106 fL (80-95); MPV 10.6 fL (8.0-11.0); RBC 2.65 10^6/uL (3.93-5.22); RDW 17.4 % (11.7-14.6); RDW-SD 64.3 fL; WBC 6.43 10^3/uL (4.4-10.8)
[2025-02-11 12:05] LABS: ALT 11 U/L (14-59); AST 28 U/L (15-37); Albumin 2.8 g/dL (3.4-5.0); Alkaline Phosphatase 138 U/L (46-116); Anion Gap 10.8 mmol/L (3-11); BUN 9 mg/dL (7-18); Bilirubin, Total 0.3 mg/dL (0.2-1.0); CO2 29.2 mmol/L (21.0-32.0); CREATININE 0.8 mg/dL (0.55-1.02); Calcium 8.5 mg/dL (8.5-10.1); Chloride 106 mmol/L (98-107); Estimated GFR 80.21 (mL/min/1.73m2); Glucose 94 mg/dL (74-106); LDH 386 U/L (81-234); Potassium 3.5 mmol/L (3.5-5.1); Sodium 146 mmol/L (136-145); Total Protein 5.9 g/dL (6.4-8.2)
[2025-02-11 12:12] LABS: Absolute Eosinophil Count 0.19 10^3/uL (0.0-0.7); Absolute Lymphocyte Count 1.61 10^3/uL (1.2-3.4); Absolute Monocyte Count 0.19 10^3/uL (0.1-0.8); Absolute Neutrophil Count 4.44 10^3/uL (1.2-6.7); Bands % 1 %; Diff Comment Manual Differential; Macrocytosis 2+; Platelet Count 85 10^3/uL (130-400)
[2025-02-18 12:37] LABS: HCT 27.3 % (36.0-46.0); HGB 8.8 g/dL (11.2-15.7); MCH 34.9 pg (27.0-33.0); MCHC 32.2 % (32.0-36.0); MCV 108 fL (80-95); MPV 10.7 fL (8.0-11.0); Platelet Count 104 10^3/uL (130-400); RBC 2.52 10^6/uL (3.93-5.22); RDW 18.6 % (11.7-14.6); RDW-SD 73.1 fL; WBC 6.84 10^3/uL (4.4-10.8)
[2025-02-18 12:53] LABS: ALT 12 U/L (14-59); AST 23 U/L (15-37); Albumin 2.6 g/dL (3.4-5.0); Alkaline Phosphatase 133 U/L (46-116); Anion Gap 8.1 mmol/L (3-11); BUN 11 mg/dL (7-18); Bilirubin, Total 0.5 mg/dL (0.2-1.0); CO2 28.9 mmol/L (21.0-32.0); CREATININE 0.7 mg/dL (0.55-1.02); Calcium 8.7 mg/dL (8.5-10.1); Chloride 106 mmol/L (98-107); Estimated GFR 94.15 (mL/min/1.73m2); Glucose 85 mg/dL (74-106); LDH 418 U/L (81-234); Potassium 3.7 mmol/L (3.5-5.1); Sodium 143 mmol/L (136-145)
[2025-02-18 13:01] LABS: Absolute Basophil Count 0.07 10^3/uL (0.0-0.2); Absolute Lymphocyte Count 1.85 10^3/uL (1.2-3.4); Absolute Monocyte Count 0.34 10^3/uL (0.1-0.8); Absolute Neutrophil Count 4.58 10^3/uL (1.2-6.7); Atypical Lymphocytes % 3 %; Bands % 1 %; Diff Comment Manual Differential; Macrocytosis 2+
[2025-02-18] MEDS: Normal Saline Flush 10 ML SYR IVP (13:06)
[2025-02-25 10:17] LABS: HCT 28.6 % (36.0-46.0); HGB 8.9 g/dL (11.2-15.7); MCH 34.2 pg (27.0-33.0); MCHC 31.1 % (32.0-36.0); MCV 110 fL (80-95); MPV 9.8 fL (8.0-11.0); Platelet Count 129 10^3/uL (130-400); RDW 18.6 % (11.7-14.6); WBC 6.95 10^3/uL (4.4-10.8)
[2025-02-25 10:46] LABS: ALT 15 U/L (14-59); AST 18 U/L (15-37); Albumin 2.9 g/dL (3.4-5.0); Alkaline Phosphatase 110 U/L (46-116); Anion Gap 8.6 mmol/L (3-11); BUN 16 mg/dL (7-18); Bilirubin, Total 0.2 mg/dL (0.2-1.0); CO2 30.4 mmol/L (21.0-32.0); CREATININE 0.9 mg/dL (0.55-1.02); Calcium 8.4 mg/dL (8.5-10.1); Chloride 105 mmol/L (98-107); Estimated GFR 69.64 (mL/min/1.73m2); Glucose 100 mg/dL (74-106); LDH 390 U/L (81-234); Potassium 3.7 mmol/L (3.5-5.1); Sodium 144 mmol/L (136-145)
[2025-02-25 11:03] LABS: Absolute Lymphocyte Count 1.11 10^3/uL (1.2-3.4); Absolute Monocyte Count 0.21 10^3/uL (0.1-0.8); Absolute Neutrophil Count 5.42 10^3/uL (1.2-6.7); Atypical Lymphocytes % 0 %; Bands % 4 %
[2025-02-25 11:05] LABS: Diff Comment Manual Differential; Macrocytosis 2+
[2025-02-25] MEDS: Normal Saline Flush 10 ML SYR IVP (11:34)
[2025-03-04 10:07] LABS: Abs Immature Grans 0.62 10^3/uL (0.0-0.06); Absolute Basophil Count 0.05 10^3/uL (0.0-0.2); Absolute Eosinophil Count 0.17 10^3/uL (0.0-0.7); Absolute Lymphocyte Count 0.91 10^3/uL (1.2-3.4); Absolute Monocyte Count 0.41 10^3/uL (0.1-0.8); Absolute Neutrophil Count 3.19 10^3/uL (1.2-6.7); Basophils % 0.9 %; Eosinophils % 3.2 %; HCT 29.5 % (36.0-46.0); HGB 9.2 g/dL (11.2-15.7); Immature Grans % 11.6 %; MCH 34.3 pg (27.0-33.0); MCHC 31.2 % (32.0-36.0); MCV 110 fL (80-95); MPV 9.7 fL (8.0-11.0); Monocytes % 7.7 %; Neutrophils % 59.6 %; Platelet Count 119 10^3/uL (130-400); RBC 2.68 10^6/uL (3.93-5.22); RDW 17.9 % (11.7-14.6); WBC 5.35 10^3/uL (4.4-10.8)
[2025-03-04] MEDS: Normal Saline Flush 10 ML SYR IVP (10:14)
[2025-03-04 10:28] LABS: ALT 31 U/L (14-59); AST 19 U/L (15-37); Albumin 2.5 g/dL (3.4-5.0); Alkaline Phosphatase 154 U/L (46-116); Anion Gap 8.9 mmol/L (3-11); BUN 15 mg/dL (7-18); Bilirubin, Total 0.3 mg/dL (0.2-1.0); CO2 29.1 mmol/L (21.0-32.0); CREATININE 0.7 mg/dL (0.55-1.02); Calcium 8.5 mg/dL (8.5-10.1); Chloride 105 mmol/L (98-107); Estimated GFR 94.15 (mL/min/1.73m2); Glucose 100 mg/dL (74-106); LDH 295 U/L (81-234); Sodium 143 mmol/L (136-145); Total Protein 6.1 g/dL (6.4-8.2)
== END 2025-03-09 23:59 | disposition home or self-care (01) ==
LOC: INF 00:42
PROVIDERS: Visit Provider Internal Medicine Hematology & Oncology
DX: C83.38 Diffuse large B-cell lymphoma, lymph nodes of multiple sites (principal); Z45.2 Encounter for adjustment and management of vascular access device
CPT/HCPCS: 36591; 80053; 83615; 85025

== ENCOUNTER 2025-03-25 02:27 | Outpatient (RCR) | payer MEDICARE, BC, SELFPAY ==
[2025-03-25] MEDS: Normal Saline Flush 10 ML SYR IVP (11:22)
[2025-03-25 11:34] LABS: Abs Immature Grans 0.89 10^3/uL (0.0-0.06); HCT 30.0 % (36.0-46.0); HGB 9.9 g/dL (11.2-15.7); MCH 33.6 pg (27.0-33.0); MCHC 33.0 % (32.0-36.0); MCV 102 fL (80-95); MPV 11.4 fL (8.0-11.0); RBC 2.95 10^6/uL (3.93-5.22); RDW 17.4 % (11.7-14.6); RDW-SD 64.7 fL; WBC 7.08 10^3/uL (4.4-10.8)
[2025-03-25 11:58] LABS: Immature Grans % 0.0 %; Platelet Count 36 10^3/uL (130-400)
[2025-03-25 11:59] LABS: RBC Morphology Normal
[2025-03-25 12:04] LABS: ALT 11 U/L (14-59); AST 14 U/L (15-37); Albumin 2.0 g/dL (3.4-5.0); Alkaline Phosphatase 123 U/L (46-116); Anion Gap 7.3 mmol/L (3-11); BUN 6 mg/dL (7-18); Bilirubin, Total 0.3 mg/dL (0.2-1.0); CO2 29.7 mmol/L (21.0-32.0); Calcium 7.5 mg/dL (8.5-10.1); Chloride 104 mmol/L (98-107); Estimated GFR 107.74 (mL/min/1.73m2); Glucose 95 mg/dL (74-106); LDH 276 U/L (81-234); Potassium 3.7 mmol/L (3.5-5.1); Sodium 141 mmol/L (136-145); Total Protein 4.5 g/dL (6.4-8.2)
== END 2025-04-09 23:59 | disposition home or self-care (01) ==
LOC: INF 02:27
PROVIDERS: Visit Provider Internal Medicine Hematology & Oncology
DX: C83.38 Diffuse large B-cell lymphoma, lymph nodes of multiple sites (principal); Z45.2 Encounter for adjustment and management of vascular access device
CPT/HCPCS: 36591; 80053; 83615; 85025